=== PATIENT | male | born 1975 | race Caucasian/White ===

== ENCOUNTER 2021-01-11 06:05 | Emergency (ER) | payer OTHER ==
[~2021-01-11] VITALS: Ht 172.7 cm; Wt 90.7 kg
[2021-01-11 06:17] VITALS: BP 136/87
--- NOTE | 2021-01-11 06:24 | NUR ---
patient to the lobby.
--- NOTE | 2021-01-11 06:31 | NUR ---
PT AMBULATED TO BED 8 W STEADY GAIT.
--- NOTE | 2021-01-11 06:33 | NUR ---
Dr. Herring examining patient.
--- NOTE | 2021-01-11 06:44 | NUR ---
PT STATES WILL TRY TO USE RESTROOM AFTER DRINKING WATER.
--- NOTE | 2021-01-11 06:46 | NUR ---
PT C/O OF EPIGASTRIC PAIN THAT RADIATES TOWARDS BACK X 1 DAY AFTER EATING. pT C/O OF NAUSEA, DENIES VOMITTING, FEVER/CHILLS. MEDICAL HX: NONE NKA
--- NOTE | 2021-01-11 06:51 | NUR ---
Ultrasound at bedside.
[2021-01-11 06:57] LABS: BASOPHILS % (AUTO) 0.4 % (0.0-2.0); EOSINOPHILS # (AUTO) 0.2 K/uL (0-0.4); EOSINOPHILS % (AUTO) 2.3 % (0.0-4.0); HEMATOCRIT 44.9 % (36-52); HEMOGLOBIN 15.2 g/dL (12.0-18.0); LYMPHOCYTES # (AUTO) 1.7 K/uL (2.0-11.5); LYMPHOCYTES % (AUTO) 19.5 % (20.5-51.1); MEAN CORPUSCULAR HEMOGLOBIN 31 pg (27-31); MEAN CORPUSCULAR HGB CONC 34 g/dL (33-37); MEAN CORPUSCULAR VOLUME 92.4 fL (80-94); MONOCYTES # (AUTO) 0.5 K/uL (0.8-1.0); MONOCYTES % (AUTO) 6.1 % (1.7-9.3); NEUTROPHILS # (AUTO) 6.1 K/uL (1.8-7.7); NEUTROPHILS % (AUTO) 71.7 % (42.2-75.2); PLATELET COUNT (AUTO) 334 K/uL (140-450); RED BLOOD CELL COUNT(AUTO) 4.86 MIL/uL (4.20-6.10); WHITE BLOOD COUNT (AUTO) 8.5 K/uL (4.8-10.8)
[2021-01-11 07:19] LABS: ALBUMIN 3.6 g/dL (3.4-5.0); ANION GAP 11.5 (8-16); CARBON DIOXIDE 25.8 mmol/L (21-32); POTASSIUM 4.3 mmol/L (3.5-5.1); TOTAL BILIRUBIN 0.2 mg/dL (0.0-1.0)
--- NOTE | 2021-01-11 07:23 | NUR ---
Pt report given to CHELSEA JAFFE. Transfer of care at this time.
--- NOTE | 2021-01-11 07:24 | NUR ---
REPORT RECEIVED FROM CHELSEA ADAMS FOR TRANSFER OF CARE
--- NOTE | 2021-01-11 08:10 | NUR ---
PT PROVIDED WITH WARM BLANKET BEDSIDE
--- NOTE | 2021-01-11 08:13 | NUR ---
Patient appears to be resting comfortably in bed WITH EYES OPEN AND LIGHTS OFF. Vital Signs within normal limits AND CHARTED. Respirations even and unlabored. BED IN LOWEST POSITION AND LOCKED
--- NOTE | 2021-01-11 09:45 | NUR ---
Patient discharged with v/s stable. Written and verbal after care instructions given and explained. Patient verbalized understanding. Ambulatory with steady gait. All questions addressed prior to discharge. Advised to follow up with PMD.
[2021-01-11 09:46] VITALS: BP 129/80
[2021-01-11 11:13] LABS: APPEARANCE,URINE CLEAR (CLEAR); BILIRUBIN,URINE NEGATIVE (NEGATIVE); BLOOD, URINE NEGATIVE (NEGATIVE); COLOR,URINE YELLOW (YELLOW); LEUKOCYTE ESTERASE ,URINE NEGATIVE (NEGATIVE); NITRITE, URINE NEGATIVE (NEGATIVE); UGLUCOSE NEGATIVE (NEGATIVE)
== END 2021-01-11 09:45 | disposition home or self-care (01) ==
LOC: MED 06:05
DX: K80.80 Other cholelithiasis without obstruction (principal)
CPT/HCPCS: 36415; 76705; 80053; 81003; 83690; 85025; 99284; Q0092